=== PATIENT | female | born 1960 | race Caucasian/White ===

== ENCOUNTER → 2017-10-27 | Outpatient (CLI) | payer OTHER ==
--- NOTE | 2017-10-27 09:42 | RAD ---
Indications: Chronic neck pain and right shoulder pain. History of bulging discs. 3 VIEW CERVICAL SPINE SERIES: Comparison: None available. FINDINGS: Grade 1 anterolisthesis of C3-4 seen. Grade 2 anterolisthesis of C4-5 is seen measuring 5 mm. Grade 1 anterolisthesis of C7-T1 is seen. Degenerative disc space narrowing and endplate spurring is seen at C4-5 and C5-6 and C6-7. Degenerative facet arthropathy is seen throughout the cervical spine. No acute fracture or discitis or osteolytic process is evident. No prevertebral soft tissue swelling is evident. IMPRESSION: Degenerative cervical spondylosis and degenerative cervical spondylolisthesis. Spondylolisthesis is most marked at C4-5 with a grade 2 anterolisthesis. This may result in spinal canal stenosis. 3 VIEW RIGHT SHOULDER STUDY: FINDINGS: No acute fracture or dislocation or osteolytic process is seen. No AC joint separation is seen. There is mild degenerative spurring of the right AC joint and right glenohumeral joint. IMPRESSION: No acute fracture. Mild primary degenerative osteoarthritis. Electronically signed by: Neal Fonseca MD (10/27/2017 9:38 AM) [id number]
== END | disposition home or self-care (01) ==
LOC: DXRAD 08:44
PROVIDERS: ATTEND Surgery
DX: M43.12 Spondylolisthesis, cervical region (principal); M48.02 Spinal stenosis, cervical region; M50.323 Other cervical disc degeneration at C6-C7 level; M19.011 Primary osteoarthritis, right shoulder
CPT/HCPCS: 72040; 73030

== ENCOUNTER 2019-05-04 19:11 | Inpatient (IN) | payer BC, MEDICARE, OTHER ==
[~2019-05-04] VITALS: Ht 170.2 cm; Wt 64.4 kg
[2019-05-04] MEDS ORDERED: IV RINGERS SOLUTION,LACTATED 1,000 ML IV SCH (19:28)
--- NOTE | 2019-05-04 19:33 | PHYS DOC ---
Past History Past Medical History: UTI Adult General Chief Complaint Chief Complaint: ALTERED MENTAL STATUS.. " No... NO... No.. ".. I hit.. I hit... I hit..." [facility] HPI Patient is a 58 year old female who presents with mental status change. Pt. reportedly normal at 1900 hrs. patient currently arrived by private vehicle and very nonresponsive in the parking lot. Patient did move all extremities with noxious stimuli. Did track with eyes. Patient did cross react. Patient unwilling to give history at this time. Patient reportedly had no trauma. No recent travel. No specific ill contacts. Reportedly acting normal at 1900 hrs. per family. Patient initially appeared overly sedated but could be awakened with noxious stimuli. Pt. eventually became more interactive, and began k icking, fighting staff, attempting to bite, hit, and scratch staff. The pt. eventually restraints for staff and self protection. A IV was established and labs drawn for further evaluation. Patient over the course of ED stay received fluids and her mentation gradually improved. She still somewhat a very poor historian at time of admission. Patient reportedly follows with Dr. Pulliam Review of Systems Review of Systems Pt. poor historian Constitutional: Denies fever or chills [] Eyes: Denies change in visual acuity, redness, or eye pain [] HENT: Denies nasal congestion or sore throat [] Respiratory: Denies cough or shortness of breath [] Cardiovascular: No additional information not addressed in HPI [] GI: Denies abdominal pain, nausea, vomiting, bloody stools or diarrhea [] : Denies dysuria or hematuria [] Musculoskeletal: Denies back pain or joint pain [] Integument: Denies rash or skin lesions [] Neurologic: Denies headache, focal weakness or sensory changes [] Endocrine: Denies polyuria or polydipsia [] All other systems were reviewed and found to be within normal limits, except as documented in this note. Family History Family History Non-contributory and minimally available Current Medications Current Medications See nursing for home meds Allergies Allergies Allergies Coded Allergies Type Severity Reaction Last Updated Verified codeine Allergy Mild CAUSES PT MENTAL ISSUES 04/25/16 Yes Uncoded Allergies Type Severity Reaction Last Updated Verified TYLENOL 3 Allergy Unknown MENTAL CHANGES 04/25/16 Physical Exam Physical Exam Constitutional: Very agitated in appearance. When awaken. Pt. appears as if she is over sedated on sleeping med or muscle relaxant. HENT: Normocephalic, atraumatic, bilateral external ears normal, oropharynx moist, no oral exudates, nose normal. [] Eyes: PERRLA, EOMI, conjunctiva normal, no discharge. [] Neck: Normal range of motion, no tenderness, supple, no stridor. [] Cardiovascular: Tachycardia Heart rate regular rhythm, no murmur [] Lungs & Thorax: Bilateral breath sounds equal apex with scattered wheezes on auscultation [] Abdomen: Bowel sounds normal, soft, no tenderness, no masses, no pulsatile masses. [] Skin: Warm, dry, no erythema, no rash. Poor turgor. Back: No tenderness, no CVA tenderness. [] Extremities: No tenderness, no cyanosis, no clubbing, ROM intact, no edema. [Arthritis changes. Neurologic: Alert , agitated,, moves all ext. and cross reacts to noxious stimuli, , . []DTR + 2., patella and brachial . Pt. min. interactive. Other than hit, biting and scratching staff. Psychologic: Affect aggressive and confused, judgement obviously currently impaired. EKG EKG My interpretation EKG shows a sinus rate of 82 bpm. There is some nonspecific anterior lateral changes. But no findings acute STEMI of contralateral changes[] Radiology/Procedures Radiology/Procedures [] [address] [place] [id number] IMAGING REPORT Signed PATIENT: KEVIN ISIDRO ACCOUNT: [id number] : 1960 LOCATION: ER AGE: 58 SEX: F EXAM STATUS: REG ER ORD. PHYSICIAN: FERMIN MATT MD REASON: FALL PROCEDURE: CT HEAD AND CERVICAL SPINE WO CT Head W/O Contrast: History: Pain status post fall Comparison: none Axial images were obtained without contrast. The bradley and white matter appears normal and symmetrical for the patients age. There is no mass effect, extraaxial fluid collections or hydrocephalus. There is no gross bleed. There is no focal loss of bradley-white matter distinction to suggest acute ischemia, i.e. stroke. Impression: No acute findings. End impression CT C-Spine without contrast: Clinical History: Technique: Axial helical images of the cervical spine were obtained without contrast, axial coronal and sagittal reconstruction was performed. Findings: There is no loss of vertebral body stature. There is no prevertebral soft tissue swelling. There is grade 2 anterolisthesis of C4 on C5. There is grade 1 anterolisthesis of C7 on T1. The C1-C2 relationship is normal. The visualized osseous structures appear normal. Evaluation of the central canal is limited without contrast. There is multiple posterior disc bulges resulting in flattening of the thecal sac. There does not appear to be gross flattening of the cervical cord. There is marked narrowing of multiple neuroforamen. Impression: Marked degenerative changes. No acute findings. Clinical correlation suggested. PQRS Compliance Statement: One or more of the following individualized dose reduction techniques were utilized for this examination: 1. Automated exposure control 2. Adjustment of the mA and/or kV according to patient size 3. Use of iterative reconstruction technique Electronically signed by: Joby Oliver III, MD (05/04/2019 9:22 PM) [facility] DICTATED AND SIGNED BY: JOBY OLIVER III, MD DATE: 05/04/192121 CC: PAULINA PULLIAM DO; FERMIN MATT MD ~ Course & Med Decision Making Course & Med Decision Making Pertinent Labs and Imaging studies reviewed. (See chart for details) Pt. admitted to Dr. Dumont for further eval and tx. Neurology consult in AM UTI may be cause of this pt. acute mental status change if no other etiology is found. Impression: 1. Acute mental status change 2. Aggressive behavior 3. Urinary tract infection 4. Possible dementia [] Dragon Disclaimer Dragon Disclaimer This electronic medical record was generated, in whole or in part, using a voice recognition dictation system. Departure Departure: Disposition: 01 HOME/RESIDENCE PRIOR TO ADM Condition: STABLE Referrals: PAULINA PULLIAM DO (PCP) Francy Disclaimer This chart was dictated in whole or in part using Voice Recognition software in a busy, high-work load, and often noisy Emergency Department environment. It may contain unintended and wholly unrecognized errors or omissions. Dragon Disclaimer This chart was dictated in whole or in part using Voice Recognition software in a busy, high-work load, and often noisy Emergency Department environment. It may contain unintended and wholly unrecognized errors or omissions. FERMIN MATT MD May 04, 2019 19:33
[2019-05-04 20:08] LABS: BASO # 0.1 x10^3/uL (0.0-0.2); BASO % 1 % (0-3); EOS # 0.7 x10^3/uL (0.0-0.7); EOS % 10 % (0-3); HEMATOCRIT 36.9 % (36.0-47.0); HEMOGLOBIN 12.2 g/dL (12.0-15.5); LYMPH # 2.2 x10^3/uL (1.0-4.8); LYMPH % 29 % (24-48); MEAN CORPUSCULAR HEMOGLOBIN 31 pg (25-35); MEAN CORPUSCULAR HGB CONC 33 g/dL (31-37); MEAN CORPUSCULAR VOLUME 94 fL (79-100); MONO # 0.6 x10^3/uL (0.0-1.1); MONO % 8 % (0-9); NEUT # 3.9 x10^3uL (1.8-7.7); NEUT % 52 % (31-73); PLATELET COUNT 270 x10^3/uL (140-400); RED BLOOD COUNT 3.95 x10^6/uL (3.50-5.40); RED CELL DISTRIBUTION WIDTH 13.2 % (11.5-14.5); WHITE BLOOD COUNT 7.5 x10^3/uL (4.0-11.0)
[2019-05-04 20:54] LABS: ANION GAP 13 (6-14); BLOOD UREA NITROGEN 20 mg/dL (7-20); CALCIUM 8.9 mg/dL (8.5-10.1); CARBON DIOXIDE 22 mmol/L (21-32); CHLORIDE 106 mmol/L (98-107); CREATININE 0.9 mg/dL (0.6-1.0); GFR 64.1; GLUCOSE 93 mg/dL (70-99); POTASSIUM 3.9 mmol/L (3.5-5.1); SODIUM 141 mmol/L (136-145)
[2019-05-04 20:58] LABS: ACETAMIN 3.7 mcg/mL (10-30); ETHANOL < 10 mg/dL (0-10); SALIC 10.3 mg/dL (2.8-20.0)
[2019-05-04 21:06] LABS: ALBUMIN 3.3 g/dL (3.4-5.0); ALK PHOS 76 U/L (46-116); ALT (SGPT) 21 U/L (14-59); AST (SGOT) 17 U/L (15-37); LIPASE 98 U/L (73-393); MAGNESIUM 1.9 mg/dL (1.8-2.4); TOTAL BILIRUBIN 0.1 mg/dL (0.2-1.0); TOTAL PROTEIN 6.4 g/dL (6.4-8.2)
[2019-05-04 21:13] LABS: DIRECT BILIRUBIN < 0.1 mg/dL (0.0-0.2)
[2019-05-04 21:19] LABS: SEDIMENTATION RATE 19 (0-25)
--- NOTE | 2019-05-04 21:25 | RAD ---
CT Head W/O Contrast: History: Pain status post fall Comparison: none Axial images were obtained without contrast. The bradley and white matter appears normal and symmetrical for the patients age. There is no mass effect, extraaxial fluid collections or hydrocephalus. There is no gross bleed. There is no focal loss of bradley-white matter distinction to suggest acute ischemia, i.e. stroke. Impression: No acute findings. End impression CT C-Spine without contrast: Clinical History: Technique: Axial helical images of the cervical spine were obtained without contrast, axial coronal and sagittal reconstruction was performed. Findings: There is no loss of vertebral body stature. There is no prevertebral soft tissue swelling. There is grade 2 anterolisthesis of C4 on C5. There is grade 1 anterolisthesis of C7 on T1. The C1-C2 relationship is normal. The visualized osseous structures appear normal. Evaluation of the central canal is limited without contrast. There is multiple posterior disc bulges resulting in flattening of the thecal sac. There does not appear to be gross flattening of the cervical cord. There is marked narrowing of multiple neuroforamen. Impression: Marked degenerative changes. No acute findings. Clinical correlation suggested. PQRS Compliance Statement: One or more of the following individualized dose reduction techniques were utilized for this examination: 1. Automated exposure control 2. Adjustment of the mA and/or kV according to patient size 3. Use of iterative reconstruction technique Electronically signed by: Chetan Burnham III, MD (05/04/2019 9:22 PM) [facility]
[2019-05-04 21:36] LABS: BARBITURATES NEG (NEG); BENZODIAZEPINES NEG (NEG); CANNABINOIDS NEG (NEG); COCAINE NEG (NEG); METHADONE NEG (NEG); OPIATES NEG (NEG); PHENCYCLIDINE NEG (NEG)
[2019-05-04 21:40] LABS: AMPHETAMINE/METHAMPHETAMINE NEG (NEG)
[2019-05-04 21:49] LABS: BACTERIA,URINE MANY /HPF (0-FEW); BILIRUBIN,URINE NEG (NEG); CLARITY,URINE CLOUDY; COLOR,URINE YELLOW; GLUCOSE,URINE NEG (NEG); NITRITE,URINE POS (NEG); RBC,URINE 0 /HPF (0-2); SQUAMOUS EPITHELIAL CELL,UR MOD /LPF; UROBILINOGEN,URINE 0.2 mg/dL (0.2 mg/dL); WBC,URINE 20-40 /HPF (0-4)
[2019-05-04 21:57] LABS: BGAS PH 7.39 (7.35-7.45)
[2019-05-04] MEDS ORDERED: ONDANSETRON PF 4 MG/2 ML VIAL. IV PRN (22:15)
[2019-05-04] MEDS ORDERED: ACETAMINOPHEN 325 MG TABLET PO PRN (22:15)
[2019-05-04 22:28] LABS: ACETAMIN 2.1 mcg/mL (10-30); SALIC 9.5 mg/dL (2.8-20.0)
[2019-05-04] MEDS ORDERED: cefTRIAXone SODIUM 1 GM VIAL ONE ×2 (22:48→23:11)
[2019-05-04] MEDS ORDERED: IV NORMAL SALINE 50ML 50 ML ONE ×2 (22:48→23:11)
--- NOTE | 2019-05-05 01:30 | NUR ---
Admission Note: Pt transported via cart from ED to ICU room 2. Pt able to transfer self over to bed with no assistance. VSS. No c/o pain or n/v at this time. Home medications entered (need reconciliation in am). Pt continues to deny any recollection of being combative in the ED, states she cannot remember anything from when they left the restaurant to when she woke up in the ED. Rocephin given in the ED.
[2019-05-05 01:31] VITALS: BP 136/79
[2019-05-05] MEDS ORDERED: CYCL-331 PO (01:58)
[2019-05-05] MEDS ORDERED: PANT40TA3 PO (01:58)
[2019-05-05] MEDS ORDERED: SUMA50TA3 PO (01:58)
[2019-05-05] MEDS ORDERED: LISI10TA2 PO (01:58)
[2019-05-05] MEDS ORDERED: LEXAPRO10 MG PO (01:58)
[2019-05-05] MEDS ORDERED: ALBU2.5V8 IH (01:58)
[2019-05-05] MEDS ORDERED: MONT10TA80 PO (01:58)
[2019-05-05] MEDS ORDERED: RANI300T PO (01:58)
[2019-05-05] MEDS ORDERED: ASPI1TAB31 PO (01:58)
[2019-05-05] MEDS ORDERED: IPRATRPIUM/ALBUTEROL 0.5/2.5MG 3 ML NEBU. ONE (04:16)
[2019-05-05] MEDS ORDERED: ALBUTEROL SULFATE 2.5 MG/3 ML NEBU. NEB PRN (05:30)
[2019-05-05 05:44] VITALS: BP 125/71
--- NOTE | 2019-05-05 05:48 | EKG ---
[address] [address] Test Date: 2019-05-04 Test Time: 21:08:15 Pat Name: KEVIN ISIDRO Department: Room: Gender: F Diet Aide: : 1960 Requested By: FERMIN MATT Order Number: [id number] Reading MD: Measurements Intervals [place] Rate: 82 P: 62 MA: 146 QRS: 11 QRSD: 90 T: 44 QT: 374 QTc: 440 Interpretive Statements SINUS RHYTHM QRS(T) CONTOUR ABNORMALITY CONSIDER ANTEROLATERAL MYOCARDIAL DAMAGE POSSIBLY ABNORMAL ECG RI6.01 No previous ECG available for comparison
--- NOTE | 2019-05-05 07:15 | RAD ---
AP portable chest radiograph 05/04/2019 Clinical History: Fall. An AP erect portable digital radiograph of the chest was obtained. The cardiac silhouette is normal in size. The thoracic aorta is mildly tortuous. No acute pulmonary infiltrate is seen. No pleural effusion or pneumothorax is noted. Degenerative changes are seen involving the thoracic spine. The osseous structures are grossly intact. IMPRESSION: No acute abnormality seen. Electronically signed by: Lalito Mejia MD (05/05/2019 7:12 AM) [id number]
[2019-05-05 07:16] LABS: BASO % 1 % (0-3); EOS # 0.4 x10^3/uL (0.0-0.7); EOS % 7 % (0-3); HEMOGLOBIN 11.2 g/dL (12.0-15.5); LYMPH # 1.2 x10^3/uL (1.0-4.8); LYMPH % 21 % (24-48); MEAN CORPUSCULAR HEMOGLOBIN 31 pg (25-35); MEAN CORPUSCULAR HGB CONC 33 g/dL (31-37); MEAN CORPUSCULAR VOLUME 94 fL (79-100); MONO # 0.6 x10^3/uL (0.0-1.1); MONO % 9 % (0-9); NEUT # 3.7 x10^3uL (1.8-7.7); NEUT % 63 % (31-73); PLATELET COUNT 219 x10^3/uL (140-400); RED BLOOD COUNT 3.62 x10^6/uL (3.50-5.40); RED CELL DISTRIBUTION WIDTH 13.4 % (11.5-14.5); WHITE BLOOD COUNT 5.9 x10^3/uL (4.0-11.0)
--- NOTE | 2019-05-05 07:30 | NUR ---
Assumed care of pt. Pt resting quietly. Neuro intact. Voices no c/o pain.
[2019-05-05 07:31] LABS: CALCIUM 8.3 mg/dL (8.5-10.1); CREATININE 0.8 mg/dL (0.6-1.0); GFR 73.4; POTASSIUM 3.9 mmol/L (3.5-5.1)
[2019-05-05] MEDS ORDERED: ASA/APAP/CAFFEINE 250/250/65MG TABLET. PO PRN (07:45)
[2019-05-05] MEDS ORDERED: CYCLOBENZAPRINE 10 MG TABLET. PO PRN (07:45)
[2019-05-05] MEDS ORDERED: ALBUTEROL SULFATE 2.5 MG/3 ML NEBU. IH PRN (07:45)
[2019-05-05] MEDS ORDERED: SUMAtriptan SUCCINATE 50 MG TABLET PO PRN (07:45)
[2019-05-05] MEDS ORDERED: IPRATRPIUM/ALBUTEROL 0.5/2.5MG 3 ML NEBU. NEB SCH (08:00)
[2019-05-05] MEDS: ASPIRIN 81 MG TAB.CHEW PO SCH (09:01)
[2019-05-05] MEDS: FAMOTIDINE 20 MG TABLET PO SCH ×2 (09:01→20:50)
[2019-05-05] MEDS: CITALOPRAM 20 MG TABLET. PO SCH (09:02)
[2019-05-05] MEDS: LISINOPRIL 10 MG TABLET PO SCH (09:02)
--- NOTE | 2019-05-05 10:30 | NUR ---
Pt Mom here to see pt. Pt sleeping. Mom to return in afternoon. Pt resting quietly.
--- NOTE | 2019-05-05 11:00 | NUR ---
US here to carotid doppler.
[2019-05-05] MEDS: PANTOPRAZOLE 40 MG TABLET. PO SCH (11:30)
[2019-05-05 11:51] VITALS: BP 105/59
--- NOTE | 2019-05-05 12:11 | RAD ---
Ultrasound carotid Doppler 05/05/2019 7:00 AM INDICATION: Altered mental status COMPARISON: None available TECHNIQUE: Sonographic imaging of the carotid vasculature was performed utilizing grayscale, color Doppler and spectral waveform analysis. FINDINGS: (All velocities are measured cm per second) Right carotid: Mild intimal thickening without significant luminal stenosis noted involving the common carotid artery and internal carotid artery. Peak systolic velocity: Proximal common carotid artery: 75 Middle common carotid artery: 93 Distal common carotid artery: 80 Proximal internal carotid artery: 94 Middle internal carotid artery: 97 Distal internal carotid artery: 86 End-diastolic velocity: 35 External carotid artery: 121 Internal carotid artery/common carotid artery ratio: 1.04 Vertebral artery: Antegrade flow Left carotid: Mild to moderate intimal thickening involving the common carotid artery and proximal internal carotid artery. Noncalcified atheromatous plaque is identified involving the proximal internal carotid artery with less than 50 percent luminal stenosis. Peak systolic velocity: Proximal common carotid artery: 96 Middle common carotid artery: 112 Distal common carotid artery: 144 Proximal internal carotid artery: 115 Middle internal carotid artery: 84 Distal internal carotid artery: 126 End-diastolic velocity: 54 External carotid artery: 126 Internal carotid artery/common carotid artery ratio: 0.88 Vertebral artery: Antegrade flow IMPRESSION: 1. No evidence for flow-limiting carotid stenosis involving the right carotid artery. 2. There is 50-69 percent stenosis involving the distal left internal carotid artery. Findings may be secondary to tortuosity of the vessel versus atherosclerotic changes. Noncalcified atheromatous plaque and intimal thickening noted involving the proximal internal carotid artery with less than 50 percent stenosis. 3. Evaluation of the carotid vasculature and measurements for luminal stenosis was performed utilizing NASCET criteria. Electronically signed by: Theresa Duval MD (05/05/2019 12:08 PM) [facility]
[2019-05-05 16:07] VITALS: BP 102/60
--- NOTE | 2019-05-05 18:09 | HP ---
ADMIT DATE: 05/04/2019 HISTORY OF PRESENT ILLNESS: The patient is a 58-year-old female patient, who was brought to the Emergency Room with altered mental status. She was apparently normal till about 1900. She was brought by private vehicle and was very nonresponsive. When she arrived to the parking lot, she was able to move all extremities with noxious stimuli and did track with eyes and did grossly act. The patient is unwilling to give history at the time. She reportedly had no trauma. No recent travel, no specific ill contact. Reportedly, acting normal up until 1900 per her family. She initially appeared overly sedated, but could be awake with noxious stimulation, eventually became more interactive and began kicking, fighting staff, attempting to bite, hit, and scratch the staff. The patient eventually was restrained for staff and self-protection. An IV line was established and labs drawn for further evaluation, and over the course of her stay in the Emergency Room, she received fluid and her mentation gradually improved, although she remained somewhat confused. The patient was with her mother and brother in a restaurant and when she stood up to leave, she started feeling that she was in a tunnel with light flashes. She was apparently extensively investigated in the Emergency Room. Her lab works were mostly unremarkable. Her white cell count was normal. Her blood gases were unremarkable. Her coagulation tests were all within acceptable range. Her urinalysis was essentially unremarkable. It did show that she has positive nitrite and moderate amount of leukocyte esterase, and large amount of wbc's and many bacteria; however, her tox screen was essentially negative. She has had a CT scan of the head and cervical spine, which were both unremarkable. The patient was admitted to the ICU for close observation and for further evaluation and treatment. PAST MEDICAL HISTORY: Significant for hypertension, gastroesophageal reflux disease, bronchial asthma/COPD, migraine headaches, and generalized osteoarthritis. PAST SURGICAL HISTORY: Significant for tubal ligation, total abdominal hysterectomy, and bilateral salpingo-oophorectomy. She has Saúl fundoplication. She has partial gastrectomy, hernia repair, and cholecystectomy. She underwent also esophagogastroduodenoscopy and colonoscopy. ALLERGIES: SHE IS ALLERGIC TO ACETAMINOPHEN AND CODEINE. MEDICATIONS: She is currently on following medications: Albuterol sulfate 1 puff every 4 hours, Flexeril 10 mg every 8 hours, lisinopril 10 mg once a day, aspirin/acetaminophen for Excedrin Migraine tablets 1 every 4 hours, escitalopram oxalate 10 mg daily, sumatriptan succinate 25 mg p.o. once as needed, Singulair 10 mg once a day, ranitidine 300 mg twice a day, Protonix 40 mg once a day. FAMILY HISTORY: She has one brother who is younger and has migraine, diabetes, and a brain tumor. Her father at the age of 72 because of myocardial infarction. Her mother is still alive at age of 81 and is known to have hyperlipidemia and hypertension. SOCIAL HISTORY: She is and lives with her mom, quit smoking about 6 weeks ago. She drinks alcohol once a week when she go bowling, does not use any drugs. 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 REVIEW OF SYSTEMS: The patient denied any blurring of vision, cataract, glaucoma, or macular degeneration. Denied any earache, tinnitus, or sensorineural deafness. Denied any nosebleeds, stuffy nose, or postnasal drip. Denied any sore throat, sore tongue, toothache, hoarseness of voice, or difficulty swallowing. Denied any nausea, vomiting, diarrhea or constipation. Denied any hematemesis, melena or hematochezia. Denied any dysuria, frequency, or hematuria. Denied any chest pain, shortness of breath, orthopnea, paroxysmal nocturnal dyspnea. Denied any cough, phlegm, or hemoptysis. PHYSICAL EXAMINATION: GENERAL: On arrival to the Emergency Room, she apparently was somewhat pale, but no jaundice, cyanosis, or thyromegaly. No jugular venous distention. No limb edema. VITAL SIGNS: Her heart rate was 105, blood pressure 150/93, temperature was 98.6, respiratory rate was 18, and oxygen saturation was 96%. HEAD, EYES, EARS, NOSE, AND THROAT: Normocephalic, atraumatic. NECK: Supple. CARDIAC: Normal first and second heart sounds. No gallop or murmur. CHEST: Showed central trachea, equal bilateral expansion, air entry, vesicular sounds. No crepitation or rhonchi. ABDOMEN: Distended, soft, nontender. No guarding or rigidity. No organomegaly. All hernial orifice intact. Bowel sounds normal. NEUROLOGIC: By the time, she arrived to the hospital, she was alert, agitated, moves all extremities to noxious stimuli. All her deep tendon reflexes were positive; however, she was initially minimally interactive. The patient stated that she has no memory or recollection of all the events from the restaurant until she woke up and restrained in the Emergency Room. She was apparently aggressive, confused, and was hitting, biting, and scratching staff and ended up in wrist restraints. LABORATORY DATA: Her EKG showed that she was in sinus rhythm at 82 beats per minute with some nonspecific anterolateral changes, but no ST-segment elevation. CT scan of the head without contrast showed that the patient's bradley and white matter appeared normal and symmetrical for the patient's age. There is no mass effect, extraaxial fluid collection, or hydrocephalus. There is no gross bleed. There is no focal loss of barrientos white matter distinction to suggest acute ischemia. CT scan of the cervical spine showed that there is no loss of vertebral body height. There is no prevertebral soft tissue swelling. There is a grade 2 anterolisthesis at C4-C5 and a grade 1 anterolisthesis at C7-T1. The C1-C2 relationship is normal. The visualized osseous structures appear normal. Evaluation of central canal is limited without contrast. There are multiple posterior disk bulges resulting in flattening of the thecal sac. There does not appear to be gross flattening of the cervical cord. There is marked narrowing of multiple neural foramina. ASSESSMENT AND PLAN: The patient was admitted to the ICU, was continued on her medication, and we did consult the neurologist to assist with her management. She has also evidence of urinary tract infection, so was started on ceftriaxone after sending urine for culture and sensitivity. GOSIA BURGESS MD DR: MARILOU/rey JOB#: [id number] / [id number]
[2019-05-05 19:22] VITALS: BP 126/75
[2019-05-05] MEDS: LACTOBACILLUS RHAMNOSUS GG 1 CAPSULE. PO SCH (20:50)
[2019-05-05] MEDS ORDERED: MONTELUKAST 10 MG TABLET. PO SCH (21:00)
--- NOTE | 2019-05-05 21:51 | CONS ---
DATE OF CONSULTATION: NEUROLOGIC CONSULTATION REFERRING PHYSICIAN: Dr. Dumont. REASON FOR CONSULTATION: Acute mental status changes. HISTORY OF PRESENT ILLNESS: This is a 58-year-old right-handed female who was admitted through Emergency Room yesterday after she had a brief spell described as acute change of mental status, followed by fainting spells. The patient was having dinner at a local restaurant. She tried to stand up and all of a sudden she fainted and apparently lost consciousness for a few minutes, the patient became unresponsive. She was transferred by car to the Emergency Room. She did not recall going to Emergency Room. She woke up in the Emergency Room, but she was combative and restless with confusion. The patient states she had a flushing movement, lasted 1-2 minutes before she passed out. She denies any history of recent head injury or falls. She denies history of seizure or stroke or TIA. Initial nonenhanced head CT scan revealed no abnormalities. In the Emergency Room, her blood pressure was 150/93. The patient complains of intermittent migraine headache, but she denies any headache right now, visual disturbances, chest pain, shortness of breath or palpitation, dysarthria or dysphagia. PAST MEDICAL HISTORY: Significant for migraine headaches, irritable bowel syndrome, GERD, hypertension, chronic neck pain and she related that to degenerative disk disease of the cervical spine. PAST SURGICAL HISTORY: Significant for Saúl fundoplication and gastric surgery, tubal ligations, total abdominal hysterectomy. SOCIAL HISTORY: The patient is single. She has 2 grown daughters. She quit smoking. She denies alcohol drinking or illicit drug use. FAMILY HISTORY: Father had myocardial infarction. Brother had migraine. Mother had migraine headaches and other brother had diabetes mellitus. REVIEW OF SYSTEMS: A 10-point review of system was performed as mentioned above in history of present illness. CURRENT HOME MEDICATIONS: Albuterol inhaler, Flexeril 10 mg daily, Lexapro 10 mg daily, lisinopril 10 mg daily, Singulair 10 mg daily, pantoprazole 40 mg daily, ranitidine 300 mg b.i.d., sumatriptan 25 mg p.r.n. for migraine headaches. ALLERGIES: CODEINE AND TYLENOL. PHYSICAL EXAMINATION: GENERAL: Well-developed, well-nourished female in no acute distress. She weighs 63.9 kilos. VITAL SIGNS: Blood pressure 129/81, respiratory rate 18, pulse is 85, oxygen saturation is 100% on room air, and temperature is 98.6. HEENT: Head is normocephalic, atraumatic, otherwise unremarkable. NECK: Supple. Negative for carotid bruit, lymphadenopathy or thyromegaly. LUNGS: Clear to A and P. CARDIOVASCULAR: Regular rate and rhythm, normal S1, S2. There is no S3, S4 or murmur. ABDOMEN: Soft. Bowel sounds positive. EXTREMITIES: Negative for cyanosis, clubbing or pitting edema. NEUROLOGICAL EXAMINATION: Mental status: The patient is alert and oriented x 3. Speech is fluent. There is no language dysfunction. Memory, judgment, and abstract thinking are normal. The patient denies hallucination or delusion. CRANIAL NERVES: Visual gillespie are full. The pupils are reactive to light and accommodation. The extraocular movements are intact. There is no nystagmus. There is no facial motor or sensory deficit. Hearing is intact bilaterally. The palate is elevated symmetrically. Sternocleidomastoid muscles are powerful bilaterally. The patient shrugs her shoulders symmetrically, protrudes her tongue in the midline without fasciculation or atrophy. MOTOR: No focal muscle bulk was seen. The tone is normal. The strength is 5/5 throughout. Sensory examination revealed normal pinprick, light touch, vibratory and position senses. Deep tendon reflexes were asymmetric and hypoactive at 20/5 throughout. Gait and coordination were normal. LABORATORY DATA: CBC revealed white blood cells of 5.9 thousand, hemoglobin 11.2, hematocrit 34, platelet count 219,000. Chemistry revealed sodium of 144, potassium 3.9, chloride 111, CO2 of 24, BUN 16, creatinine 0.8 and glucose 75 with calcium 9.3. Troponin level is normal. Albumin is low. Urinalysis is consistent with urinary tract infections with white blood cells between 20-40 and moderate urinary leukocyte esterase and many bacteria. Urine drug screen is negative. DIAGNOSTIC DATA: Nonenhanced head CT scan revealed no acute intracranial process, otherwise unremarkable. CT of the neck revealed moderate degenerative changes without fracture. Echocardiogram revealed right carotid artery revealed no significant stenosis. Left carotid artery revealed stenosis between 50-69% and chest x-ray revealed no evidence of acute cardiopulmonary process. IMPRESSION: 1. A sudden onset of encephalopathy, rule out transient ischemic attack versus non-convulsive seizure. 2. Urinary tract infections. 3. Multiple medical problems include gastroesophageal reflux disease, chronic neck pain, secondary to degenerative disk disease, irritable bowel syndrome, hypertension and migraine headaches. RECOMMENDATIONS: 1. Continue with current management including antibiotics for urinary tract infections. 2. Continue her aspirin. 3. Echocardiogram. 4. We will arrange the patient for EEG to be done on outpatient basis to rule out potential for seizure. M Lizbet BOYER MD DR: ALYSON/rey JOB#: [id number] / [id number]
--- NOTE | 2019-05-05 23:37 | PN ---
DATE: 05/05/2019 PROGRESS NOTE SUBJECTIVE: The patient is sitting up in her bed, eating her dinner comfortably, in no apparent distress. She is awake and alert. On questioning her, she denied any complaint. The patient denied any recollection of all the events of the restaurant and only remembered when she woke up in the emergency room in wrist restraints. She remained throughout her stay in the ICU stable, has had no further similar episodes and denies any complaint. PHYSICAL EXAMINATION: GENERAL: When I examined her, she looked pale, somewhat cachectic, but no jaundice or cyanosis. No lymphadenopathy, no thyromegaly. No jugular venous distention. No limb edema. VITAL SIGNS: Her heart rate was 69, blood pressure 102/60, temperature 98.5, respiratory rate 16, and oxygen saturation was 97%. HEAD, EYES, EARS, NOSE AND THROAT: Showed normocephalic, atraumatic. NECK: Supple. CARDIAC: Normal first and second heart sounds. No gallop or murmur. CHEST: Clear to auscultation. No crepitation or rhonchi. ABDOMEN: Scaphoid, soft, and nontender. NEUROLOGIC: She is awake, alert, responding appropriately. All cranial nerves intact. She moves extremities without difficulty. She ambulates without assistance or assistive devices. LABORATORY DATA: Her lab work this morning showed her white cell count is 5900, hemoglobin 11, hematocrit 34, MCV 94 and platelet count 219,000. Her chemistry this morning showed a serum sodium 144, potassium 3.9, chloride 111, bicarbonate 24, anion gap of 9, BUN 16, creatinine 0.8, estimated GFR was 73 mL per minute. Her glucose was 75, calcium was 8.3. Prothrombin time, INR and aPTT as well as D-dimer are all normal. Urinalysis was consistent with infection and toxic screen was negative. Her TSH was high at 24.175. She did have a carotid Doppler ultrasound, which her right carotid showed mild intimal thickening without significant luminal stenosis noted involving the common carotid and internal carotid artery. Her left carotid showed a mild to moderate and intimal thickening involving the common carotid artery and proximal internal carotid artery, noncalcified atheromatous plaque is identified involving the proximal internal carotid artery with less than 50% luminal stenosis. She was seen by Dr. Larson, who said that the patient either has a TIA and/or non-convulsive seizure and recommended to obviously arrange for echocardiogram. Meanwhile, we will continue with all her medication including IV ceftriaxone for urinary tract infection. GOSIA BURGESS MD DR: MARILOU/rey JOB#: [id number] / [id number]
[2019-05-06 02:39] VITALS: BP 107/65
--- NOTE | 2019-05-06 04:45 | NUR ---
Shift Note: Pt is a/o x3 (still cannot remember what happened prior to coming in to ED until she woke up), VSS, no c/o pain or n/v at this time. Pt anticipating discharge today.
[2019-05-06 06:14] VITALS: BP 98/61
[2019-05-06 06:48] LABS: CALCIUM 8.7 mg/dL (8.5-10.1); CREATININE 0.8 mg/dL (0.6-1.0); GFR 73.4; POTASSIUM 3.8 mmol/L (3.5-5.1)
[2019-05-06] MEDS: LACTOBACILLUS RHAMNOSUS GG 1 CAPSULE. PO SCH (08:03)
[2019-05-06] MEDS: FAMOTIDINE 20 MG TABLET PO SCH (08:03)
[2019-05-06] MEDS: CITALOPRAM 20 MG TABLET. PO SCH (08:03)
[2019-05-06] MEDS: ASPIRIN 81 MG TAB.CHEW PO SCH (08:03)
[2019-05-06] MEDS: LISINOPRIL 10 MG TABLET PO SCH (08:05)
[2019-05-06 10:36] VITALS: BP 113/76
[2019-05-06] MEDS: PANTOPRAZOLE 40 MG TABLET. PO SCH (11:48)
[2019-05-06] MEDS ORDERED: AMLO5TAB4 PO (11:53)
--- NOTE | 2019-05-06 12:14 | NUR ---
NURSING NOTE PT STATES SHE WAS HAVING TUNNEL VISION AND STATES SHE DOES NOT REMEMBER WHAT HAPPENED AFTER THAT, STATES IT HAS NEVER HAPPENED BEFORE. PT IS CURRENTLY A&O X3 WITH NO COMPLAINTS. PLAN IS TO GET AN ECCO THIS AFTERNOON ORDERED BY DR BOYER. PT IS TO HAVE AN EEG AN OUTPATIENT. WILL CONTINUE TO MONITOR. STEVEN PHIPPS.
[2019-05-06 14:40] VITALS: BP 103/58
--- NOTE | 2019-05-06 14:47 | NUR ---
NURSING NOTE EEG SCHEDULED FridayMAY [address] BOY[address] OFFICE. STEVEN PHIPPS.
--- NOTE | 2019-05-06 16:48 | CARD ---
MR#: [id number] Date of Study: 05/06/2019 Ordering Physician: Gina BOYER, Referring Physician: Gina BOYER, Tech: Pauline Ortega RDCS APPROVED REPORT EXAM: Two-dimensional and M-mode echocardiogram with Doppler and color Doppler. Other Information Quality : Good INDICATION Syncope 2D DIMENSIONS RVDd1.9 (2.9-3.5cm)Left Atrium(2D)2.9 (1.6-4.0cm) IVSd0.7 (0.7-1.1cm)Aortic Root(2D)2.8 (2.0-3.7cm) LVDd4.4 (3.9-5.9cm)LVOT Diameter1.9 (1.8-2.4cm) PWd0.8 (0.7-1.1cm)LVDs1.8 (2.5-4.0cm) FS (%) 30.0 %SV79.2 ml LVEF(%)60.0 (>50%) Aortic Valve AoV Peak Winston.123.6cm/sAoV VTI23.3cm AO Peak GR.6.1mmHgAO Mean GR.3mmHg DAISY (VTI)2.51cm2 Mitral Valve MV E Ikpiaymn94.5cm/sMV DECEL DRYP902sw MV A Iznoegqt691.9cm/sE/A Ratio0.8 LEFT VENTRICLE The left ventricle is normal size. There is normal left ventricular wall thickness. The left ventricu lar systolic function is normal and the ejection fraction is within normal range. The Ejection Fracti on is 55-60%. There is normal LV segmental wall motion. Transmitral Doppler flow pattern is Grade I-a bnormal relaxation pattern. RIGHT VENTRICLE The right ventricle is normal size. The right ventricular systolic function is normal. ATRIA The left atrium size is normal. The right atrium size is normal. The interatrial septum is intact wit h no evidence for an atrial septal defect or patent foramen ovale as noted on 2-D or Doppler imaging. AORTIC VALVE The aortic valve is calcified but opens well. Doppler and Color Flow revealed no significant aortic r egurgitation. There is no significant aortic valvular stenosis. MITRAL VALVE The mitral valve is thickened but opens well. There is no evidence of mitral valve prolapse. There is no mitral valve stenosis. Doppler and Color-flow revealed trace mitral regurgitation. TRICUSPID VALVE The tricuspid valve is normal in structure and function. Doppler and Color Flow revealed no tricuspid valve regurgitation noted. There is no tricuspid valve stenosis. PULMONIC VALVE The pulmonic valve is not well visualized. Doppler and Color Flow revealed no pulmonic valvular regur gitation. There is no pulmonic valvular stenosis. GREAT VESSELS The aortic root is normal in size. The ascending aorta is normal in size. The IVC is normal in size a nd collapses >50% with inspiration. PERICARDIAL EFFUSION There is no evidence of significant pericardial effusion. Critical Notification Critical Value: No <Conclusion> The left ventricular systolic function is normal and the ejection fraction is within normal range. Th e Ejection Fraction is 55-60%. There is normal LV segmental wall motion. Signed by : Parvez Shahid, Electronically Approved : 05/06/2019 16:47:50
[2019-05-06] MEDS ORDERED: CEFD300C PO (17:55)
--- NOTE | 2019-05-06 18:10 | NUR ---
NURSING NOTE DISCHARGE PT DISCHARGED HOME VIA AMBULATION ACCOMPANIED BY MOTHER AT 1805. PT GIVEN WRITTEN AND VERBAL DISCHARGE INSTRUCTIONS. SCRIPT GIVEN FOR ANTIBIOTIC FOR UTI. PT IS TO FOLLOW UP WITH DR BOYER MAY 19 AT 3 PM FOR EEG. NO COMPLICATIONS. STEVEN PHIPPS.
--- NOTE | 2019-05-06 18:53 | DS ---
DATE OF DISCHARGE: 05/06/2019 HOSPITAL COURSE: The patient is a 58-year-old female patient who was admitted with acute encephalopathy, the cause of which is not very clear. The differential includes transient ischemic attack versus non-convulsive seizures. She was extensively investigated in the Emergency Room and has had a CT scan of the head and cervical spine that was unremarkable. Carotid Doppler ultrasound showed no evidence of flow limiting carotid stenosis involving the right carotid artery. There is a 69% stenosis involving the distal left internal carotid artery. Findings may be secondary to tortuosity of the vessel versus atherosclerotic changes noncalcified atheromatous plaque and intimal thickening noted involving the proximal internal carotid artery, evaluation of the carotid vasculature measurement or luminal stenosis are performed utilizing NASCET criteria. She did have an echocardiogram done today, which was basically unremarkable. It showed that left ventricular systolic function is normal, ejection fraction was within normal range. The ejection fraction was 55%. There is normal left ventricular segmental wall motion. Decision was made to discharge her home to follow with Dr. Larson's office for an outpatient EEG. PHYSICAL EXAMINATION: GENERAL: When I examined her today, she looked pale, but no jaundice, cyanosis or thyromegaly. No jugular venous distension. No lower limb edema. VITAL SIGNS: Her heart rate was 74, blood pressure was 103/58, temperature 98.6, respiratory rate was 16, and oxygen saturation was 96%. The rest of clinical exam is stable. DISCHARGE MEDICATIONS: She was discharged home to continue cefdinir 300 mg twice a day for 5 more days, albuterol sulfate 1 puff every 4 hours, amlodipine besylate 5 mg once a day, Flexeril 10 mg every 8 hours, escitalopram oxalate or Lexapro 10 mg daily, Singulair 10 mg once a day, Protonix 40 mg daily, ranitidine 300 mg twice a day and sumatriptan succinate 25 mg as needed. FINAL DISCHARGE DIAGNOSES: Acute encephalopathy, likely due to either transient ischemic attack versus non-convulsive seizures. Other medical problems include hypertension, gastroesophageal reflux disease, bronchial asthma/COPD, migraine headache and generalized osteoarthritis. GOSIA BURGESS MD DR: MARILOU/rey JOB#: [id number] / [id number]
--- NOTE | 2019-05-06 19:17 | PN ---
DATE: SUBJECTIVE: The patient denies any new medical or neurological complaints. She denies headaches, visual disturbances, nausea, vomiting, chest pain, shortness of breath or palpitation, dysarthria, dysphagia or weakness. OBJECTIVE: GENERAL: Well-developed, well-nourished female, not in acute distress. VITAL SIGNS: Blood pressure 113/76, respiratory rate 16, pulse is 76, temperature 98.6, oxygen saturation 95% on room air. HEENT: Normocephalic, atraumatic, otherwise unremarkable. NECK: Supple. Negative for carotid bruit, lymphadenopathy or thyromegaly. LUNGS: Clear to A and P. CARDIOVASCULAR: Regular rate and rhythm, normal S1, S2. There is no S3, S4 or murmur. ABDOMEN: Soft. Bowel sounds positive. EXTREMITIES: Negative for cyanosis, clubbing or edema. NEUROLOGICAL EXAM: Mental Status: The patient is alert and oriented x 3. Speech is fluent. There is no language dysfunction. Memory, judgment, and abstract thinking are normal. The patient denies hallucination or delusion. Cranial nerves are intact. No focal motor or sensory deficit. Deep tendon reflexes were symmetric and active without pathologic responses. Gait and coordination are normal. IMPRESSION: 1. Sudden onset of encephalopathy, rule out transient ischemic attack versus non-convulsive seizure. 2. Urinary tract infections. 3. Multiple medical problems include gastroesophageal reflux, chronic neck pain secondary to degenerative disk disease, irritable bowel syndrome, hypertension and migraine headaches. RECOMMENDATIONS: 1. Continue with current management and medication. 2. Await for echocardiogram results today. M Lizbet BOYER MD DR: ALYSON/rey JOB#: [id number] / [id number]
[2019-05-06 20:06] LABS: THYROXINE 3.4 ug/dL (4.5-12.0)
== END 2019-05-06 18:10 | disposition home or self-care (01) | DRG 101 ==
LOC: ER 19:11 → ICU 22:00
PROVIDERS: ADMIT Internal Medicine; ATTEND Internal Medicine
DX: R56.9 Unspecified convulsions (principal); N39.0 Urinary tract infection, site not specified; G45.9 Transient cerebral ischemic attack, unspecified; G93.40 Encephalopathy, unspecified; I10 Essential (primary) hypertension; K21.9 Gastro-esophageal reflux disease without esophagitis; J44.9 Chronic obstructive pulmonary disease, unspecified; G43.909 Migraine, unspecified, not intractable, without status migrainosus; M15.9 Polyosteoarthritis, unspecified; G89.29 Other chronic pain; M50.30 Other cervical disc degeneration, unspecified cervical region; K58.9 Irritable bowel syndrome, unspecified; Z88.6 Allergy status to analgesic agent; Z88.5 Allergy status to narcotic agent; Z90.710 Acquired absence of both cervix and uterus; Z90.3 Acquired absence of stomach [part of]; Z87.891 Personal history of nicotine dependence; Z83.3 Family history of diabetes mellitus; Z82.49 Family history of ischemic heart disease and other diseases of the circulatory system; M54.2 Cervicalgia
CPT/HCPCS: 36415; 36600; 70450; 71045; 72125; 80048; 80076; 80307; 80329; 81001; 82550; 82803; 83690; 83735; 83880; 84436; 84439; 84443; 84480; 84484; 85025; 85379; 85610; 85651; 85730; 87040; 87086; 87186; 93005; 93306; 93880; 96361; 96365; G0480; J0696; J7120; 82003; 99285-25